=== PATIENT | male | born 1950 | race Two or more races ===

== ENCOUNTER 2024-11-08 08:06 | Emergency (ER) | payer MEDICAID, OTHER ==
[~2024-11-08] VITALS: Ht 177.8 cm; Wt 77.5 kg
[2024-11-08 08:35] VITALS: PULSE 68; RESP 18; O2SAT 97
--- NOTE | 2024-11-08 08:53 | ED.PDOC ---
HPI Comments 74 y/o M, BIBA, with recent SHx of CABG presents to the ED for CC of chest pain. EMS reports, patient is coming from home where family called d/t patient complaining of substernal chest pain with associated shortness of breath sudden onset, last night (11/08/24). Per EMS, family comments that patient's symptoms intensified at the later hours of the night with seizure like activity. Patient states, having a coronary artery bypass graft surgery x1week ago; following procedure is when symptoms began shortly after. Patient endorses, shortness of breath to worsen with changes in position and with light exertion. Patient was placed on 2L N.C for comfort and is stating at 95%. No other symptoms or modifying factors are present at this time. Chief Complaint: Chest Pain Time Seen by MD: 08:30 Reviewed Notes: Nurses Notes, Manager Regional Sales Notes, Medications, Allergies Allergies: Coded Allergies: NO KNOWN ALLERGIES (Unverified , 11/08/24) Information Source: Patient, Emergency Med Personnel Mode of Arrival: EMS Severity: Moderate Timing: Hours Duration: Since onset Prehospital treatment: None Location: Substernal Radiation: No Radiation Quality: Pressure Onset: At Rest PE Risk Factors: None Modifying Factors: Exertion Associated Signs and Symptoms: SOB Past Medical History PAST MEDICAL HISTORY: Unknown Surgical History: CABG Family History Family History: Unknown Social History Smoker: Non-Smoker Alcohol: Denies ETOH Use Drugs: Denies Drug Use Lives In: Home Constitutional: denies: chills, diaphoresis, fatigue, fever, malaise, sweats, weakness, others EENTM: denies: blurred vision, double vision, ear bleeding, ear discharge, ear drainage, ear pain, ear ringing, eye pain, eye redness, hearing loss, mouth pain, mouth swelling, nasal discharge, nose bleeding, nose congestion, nose pain, photophobia, tearing, throat pain, throat swelling, voice changes, others Respiratory: reports: cough, shortness of breath; denies: hemoptysis, orthopnea, SOB at rest, SOB with excertion, stridor, wheezing, others Cardiovascular: reports: chest pain; denies: dizzy spells, diaphoresis, Dyspnea on exertion, edema, irregular heart beat, left arm pain, lightheadedness, palpitations, PND, syncope, others Gastrointestinal: denies: abdomen distended, abdominal pain, blood streaked bowels, constipated, diarrhea, dysphagia, difficulty swallowing, hematemesis, melena, nausea, poor appetite, poor fluid intake, rectal bleeding, rectal pain, vomiting, others Genitourinary: denies: burning, dysuria, flank pain, frequency, hematuria, incontinence, penile discharge, penile sore, pain, testicle pain, testicle swelling, urgency, others Neurological: reports: dizziness; denies: fainting, headache, left sided numbness, left sided weakness, numbness, paresthesia, pre-existing deficit, right sided numbness, right sided weakness, seizure, speech problems, tingling, tremors, weakness, others Musculoskeletal: denies: back pain, gout, joint pain, joint swelling, muscle pain, muscle stiffness, neck pain, others Integumetry: denies: bruises, change in color, change in hair/nails, dryness, laceration, lesions, lumps, rash, wounds, others Allergic/Immunocompromised: denies: Difficulty Healing, Frequent Infections, Hives, Itching, others Hematologic/Lymphatic: denies: anemia, blood clots, easy bleeding, easy bruising, swollen glands, others Endocrine: denies: excessive hunger, excessive sweating, excessive thirst, excessive urination, flushing, intolerance to cold, intolerance to heat, unexplained weight gain, unexplained weight loss, others Psychiatric: denies: anxiety, bipolar disorder, depression, hopeless, panic disorder, schizophrenia, sleepless, suicidal, others All Other Systems: Reviewed and Negative Physical Exam General Appearance: No Apparent Distress, Normal HEENT: Normal ENT Inspection, Pharynx Normal Neck: Full Range of Motion, Non-Tender, Normal, Normal Inspection Respiratory: Chest Non-Tender, Lungs Clear, No Accessory Muscle Use, No Respiratory Distress, Normal Breath Sounds Cardiovascular: No Edema, No Murmur, No Gallop, Normal Peripheral Pulses, Regular Rate/Rhythm Breast Exam: Deferred Gastrointestinal: No Organomegaly, Non Tender, No Pulsatile Mass, Normal Bowel Sounds, Soft Genitalia: Deferred Pelvic: Deferred Rectal: Deferred Extremities: No calf tenderness, Normal capillary refill, Normal inspection, Normal range of motion, Non-tender, No pedal edema Musculoskeletal : Apperance: Normal Neurologic: Alert, card lacer II-XII nml as Tested, No Motor Deficits, Normal Affect, Normal Mood, No Sensory Deficits Cerebellar Function: Normal Reflexes: Normal Skin: Dry, Normal Color, Warm Lymphatic: No Adenopathy Was a procedure done? Was a procedure done?: No CP Differential Dx Differential Diagnosis: MAT, CT Differential Diagnosis: HTN Essential, HTN Accelerated Differential Diagnosis: Gastritis, Myocardial Infarction, Pericarditis, Pneumonia, Pulmonary Embolus, Other (URI, SINITIS, INFLUENZA) X-Ray, Labs, Meds, VS Vital Signs Date Time Temp Pulse Resp B/P (MAP) Pulse Ox O2 Delivery O2 Flow Rate FiO2 11/08/24 10:00 65 15 124/60 (81) 100 11/08/24 09:10 66 11/08/24 08:35 98.5 68 18 130/62 (84) 97 98.5 11/08/24 08:35 68 18 97 Nasal Cannula* 2 28 11/08/24 08:12 98.5 73 14 121/69 95 98.5 11/08/24 08:11 76 11/08/24 08:07 70 Lab Test 11/08/24 09:27 11/08/24 08:29 Range/Units Troponin I High Sensitivity 381 *H 370 *H </=54 ng/L White Blood Count 6.9 4.4-10.8 10^3/uL Red Blood Count 2.81 L 4.5-5.90 10^6/uL Hemoglobin 8.2 L 13.5-17.5 g/dL Hematocrit 24.0 L 41.0-53.0 % Mean Corpuscular Volume 85.3 80.0-100.0 fL Mean Corpuscular Hemoglobin 29.2 28.0-32.0 pg Mean Corpuscular Hemoglobin Concent 34.3 32.0-36.0 g/dL Red Cell Distribution Width 15.9 H 11.8-14.3 % Platelet Count 484 H 140-450 10^3/uL Mean Platelet Volume 8.1 6.9-10.8 fL Neutrophils (%) (Auto) 59.3 37.0-80.0 % Lymphocytes (%) (Auto) 14.5 10.0-50.0 % Monocytes (%) (Auto) 13.8 H 0.0-12.0 % Eosinophils (%) (Auto) 11.5 H 0.0-7.0 % Basophils (%) (Auto) 0.9 0.0-2.0 % Neutrophils # (Auto) 4.1 1.6-8.6 10 ^3/uL Lymphocytes # (Auto) 1.0 0.4-5.4 10 ^3/uL Monocytes # (Auto) 0.9 0-1.3 10 ^3/uL Eosinophils # (Auto) 0.8 0-0.8 10 ^3/uL Basophils # (Auto) 0.1 0-0.2 10 ^3/uL Nucleated Red Blood Cells 0.0 % Sodium Level 136 136-145 mmol/L Potassium Level 4.7 3.5-5.1 mmol/L Chloride Level 101 98-107 mmol/L Carbon Dioxide Level 27 20-31 mmol/L Anion Gap 8 5-15 Blood Urea Nitrogen 26 H 9-23 mg/dL Creatinine 1.66 H 0.700-1.30 mg/dL Glomerular Filtration Rate Calc 43 >90 mL/min BUN/Creatinine Ratio 15.7 10.0-20.0 Serum Glucose 78 74-106 mg/dL Calcium Level 8.6 L 8.7-10.4 mg/dL B-Type Natriuretic Peptide 335.71 0-100 pg/mL [place] [address] Ph: [phone] DIAGNOSTIC IMAGING Diagnostic Imaging Report : [id number] Signed PATIENT: SHANELLE CHINCHILLA ACCT: [id number] UNIT: [id number] : 1950 LOC: ER ROOM / BED: / AGE / SEX: 74 / M ADM STATUS: REG ER SERVICE 8 ORDERING PHYSICIAN: VIDAL FREEDMAN MD PROCEDURE(s): CXRP - CHEST PORTABLE REASON: cp ORDER NUMBER(s): [id number], ACCESSION NUMBER(s): [id number] INDICATION: cp TECHNIQUE: Frontal view of the chest. COMPARISON: None FINDINGS: Median sternotomy. Cardiomegaly. There is no evidence of pleural disease. The lungs are clear. The bony structures of the chest are intact without fracture. IMPRESSION: 1. No evidence of acute disease. ATED BY: JACK MCMULLEN MD DICTATED DATE/TIME: 11/08/24857 SIGNED BY: JACK MCMULLEN MD SIGNED DATE/TIME: 11/08/24857 CC: Time of 1ST Reevaluation: 09:00 Reevaluation 1ST: Unchanged Patient Education/Counseling: Diagnosis, Treatment Family Education/Counseling: No Family Present SEPSIS Sepsis Screen Date sepsis recognized/suspect: Nov 08, 2024 Time Sepsis recognized/suspect: 812 Recent Procedure: No On Antibiotic Therapy: No Respiratory Rate >20: No Heart Rate >90: No Temp<36 C (96.8 F) or >38.3 C: No SBP <90 or MAP <65 mmHG: No New Acute Mental Status Change: No Is the patient on CPAP, BIPAP,: No Physician Orders Chest Portable (11/08/24 08:29) Electrocardigram (11/08/24 08:13) Troponin-I Hs (11/08/24 11:13) Electrocardigram (11/08/24 09:13) Electrocardigram (11/08/24 11:13) Vital Signs Date Time Temp Pulse Resp B/P (MAP) Pulse Ox O2 Delivery O2 Flow Rate FiO2 11/08/24 10:00 65 15 124/60 (81) 100 11/08/24 09:10 66 11/08/24 08:35 98.5 68 18 130/62 (84) 97 98.5 11/08/24 08:35 68 18 97 Nasal Cannula* 2 28 11/08/24 08:12 98.5 73 14 121/69 95 98.5 11/08/24 08:11 76 11/08/24 08:07 70 Laboratory Tests Test 11/08/24 08:29 White Blood Count 6.9 10^3/uL (4.4-10.8) Departure 1 Departure Time of Disposition: 10:44 (Patient presented with chest pain that was concerning for possible STEMI, ACS, PE, Pneumonia, Muscle Strain, COPD, Dissection. Data: 1. I ordered and reviewed the result of at least 3 labs including a CBC, BMP, and Troponin. 2. I independently interpreted the following tests: EKG which shows sinus arrythmia and Chest X-ray which shows benign moises st.Risk:This patient has a high risk of morbidity due to further diagnostic testing or treatment and may suffer from an acute cardiac or respiratory disorder. Workup reveals concern for acs and patient should be admitted for further workup and possible expert consultation. ) Impression: Primary Impression: Acute chest pain Additional Impressions: Shortness of breath S/P CABG (coronary artery bypass graft) Disposition: 09 ADMITTED INPATIENT Admit to: Tele Condition: Guarded Critical Care Note Critical Care Time?: Yes Critical care comment: Acute chest pain Authorized and Performed by: Vidal Freedman MD Total critical care time: Approximately 39 minutes Due to a high probability of clinically significant, life threatening deterioration, the patient required my highest level of preparedness to intervene emergently and I personally spent this critical care time directly and personally managing the patient. This critical care time included obtaining a history; examining the patient; pulse oximetry; ordering and review of studies; arranging urgent treatment with development of a management plan; evaluation of patient's response to treatment; frequent reassessment; and, discussions with o ther providers. This critical care time was performed to assess and manage the high probability of imminent, life-threatening deterioration that could result in multi-organ failure. It was exclusive of separately billable procedures and treating other patients and teaching time. Please see my other sections and the rest of the note for further information on patient assessment and treatment. Stability Stability form required: No Heart Score Heart Score: Heart Score Response (Comments) Value History Slightly Suspicious 0 EKG Repolarization Disturb 1 Age >65 2 Risk Factors 1 or 2 risk factors 1 Troponin >3 x's Normal limit 2 Total 6 I personally scribed for VIDAL FREEDMAN MD ([email or web address]) on 11/08/24 at 08:53. Electronically submitted by Freida Pickett ([email or web address]). I personally scribed for VIDAL FREEDMAN MD ([email or web address]) on 11/08/24 at 09:29. Electronically submitted by Freida Pickett ([email or web address]). VIDAL FREEDMAN MD Nov 08, 2024 08:53
[2024-11-08 09:00] LABS: Nucleated Red Blood Cells % 0.0 %
--- NOTE | 2024-11-08 09:01 | DVH ---
INDICATION: cp TECHNIQUE: Frontal view of the chest. COMPARISON: None FINDINGS: Median sternotomy. Cardiomegaly. There is no evidence of pleural disease. The lungs are clear. Th e bony structures of the chest are intact without fracture. IMPRESSION: 1. No evidence of acute disease.
[2024-11-08 09:02] LABS: Hematocrit 24.0 % (41.0-53.0); Hemoglobin 8.2 g/dL (13.5-17.5); Mean Corpuscular Hemoglobin 29.2 pg (28.0-32.0); Mean Corpuscular Volume 85.3 fL (80.0-100.0)
[2024-11-08 09:12] LABS: Chloride 101 mmol/L (98-107); Potassium 4.7 mmol/L (3.5-5.1)
[2024-11-08 09:13] LABS: Carbon Dioxide 27 mmol/L (20-31)
[2024-11-08 09:18] LABS: BUN/Creatinine Ratio 15.7 (10.0-20.0); Glucose 78 mg/dL (74-106)
[2024-11-08 09:19] LABS: Anion Gap 8 (5-15); Blood Urea Nitrogen 26 mg/dL (9-23); Calcium 8.6 mg/dL (8.7-10.4); Sodium 136 mmol/L (136-145)
[2024-11-08] MEDS ORDERED: ONDANSETRON HCL 4 MG/2 ML VIAL IV PRN (12:15)
[2024-11-08] MEDS ORDERED: ACETAMINOPHEN 325 MG TAB PO PRN (12:15)
[2024-11-08] MEDS ORDERED: NITROGLYCERIN 0.4 MG SL TAB SL PRN ×2 (12:15)
[2024-11-08] MEDS ORDERED: MORPHINE SULFATE 4 MG/ML SYR/VIAL IV PRN (12:15)
--- NOTE | 2024-11-08 12:18 | DVHHP2 ---
Review of Systems Allergies: Coded Allergies: NO KNOWN ALLERGIES (Unverified , 11/08/24) Exam Vital Signs Vital Signs Date Time Temp Pulse Resp B/P (MAP) Pulse Ox O2 Delivery O2 Flow Rate FiO2 11/08/24 10:00 65 15 124/60 (81) 100 11/08/24 08:35 98.5 98.5 11/08/24 08:35 Nasal Cannula* 2 28 Labs/Xrays Labs Test 11/08/24 11:35 11/08/24 08:29 Range/Units Troponin I High Sensitivity 397 *H </=54 ng/L White Blood Count 6.9 4.4-10.8 10^3/uL Red Blood Count 2.81 L 4.5-5.90 10^6/uL Hemoglobin 8.2 L 13.5-17.5 g/dL Hematocrit 24.0 L 41.0-53.0 % Mean Corpuscular Volume 85.3 80.0-100.0 fL Mean Corpuscular Hemoglobin 29.2 28.0-32.0 pg Mean Corpuscular Hemoglobin Concent 34.3 32.0-36.0 g/dL Red Cell Distribution Width 15.9 H 11.8-14.3 % Platelet Count 484 H 140-450 10^3/uL Mean Platelet Volume 8.1 6.9-10.8 fL Neutrophils (%) (Auto) 59.3 37.0-80.0 % Lymphocytes (%) (Auto) 14.5 10.0-50.0 % Monocytes (%) (Auto) 13.8 H 0.0-12.0 % Eosinophils (%) (Auto) 11.5 H 0.0-7.0 % Basophils (%) (Auto) 0.9 0.0-2.0 % Neutrophils # (Auto) 4.1 1.6-8.6 10 ^3/uL Lymphocytes # (Auto) 1.0 0.4-5.4 10 ^3/uL Monocytes # (Auto) 0.9 0-1.3 10 ^3/uL Eosinophils # (Auto) 0.8 0-0.8 10 ^3/uL Basophils # (Auto) 0.1 0-0.2 10 ^3/uL Nucleated Red Blood Cells 0.0 % Sodium Level 136 136-145 mmol/L Potassium Level 4.7 3.5-5.1 mmol/L Chloride Level 101 98-107 mmol/L Carbon Dioxide Level 27 20-31 mmol/L Anion Gap 8 5-15 Blood Urea Nitrogen 26 H 9-23 mg/dL Creatinine 1.66 H 0.700-1.30 mg/dL Glomerular Filtration Rate Calc 43 >90 mL/min BUN/Creatinine Ratio 15.7 10.0-20.0 Serum Glucose 78 74-106 mg/dL Calcium Level 8.6 L 8.7-10.4 mg/dL B-Type Natriuretic Peptide 335.71 0-100 pg/mL SEPSIS Sepsis Screen Date sepsis recognized/suspect: Nov 08, 2024 Time Sepsis recognized/suspect: 834 Recent Procedure: Yes On Antibiotic Therapy: No Respiratory Rate >20: No Heart Rate >90: No Temp<36 C (96.8 F) or >38.3 C: No SBP <90 or MAP <65 mmHG: No New Acute Mental Status Change: No Is the patient on CPAP, BIPAP,: No Physician Orders Chest Portable (11/08/24 08:29) Electrocardigram (11/08/24 08:13) Electrocardigram (11/08/24 09:13) Electrocardigram (11/08/24 11:13) Admit (11/08/24 12:04) Code Status (11/08/24 12:04) Vital Signs .PER UNIT PROTOCOL (11/08/24 12:04) Box Tender (11/08/24 12:04) May Elevate Hob ____ Degrees (11/08/24 12:04) Cardiac Diet-2gna,Lofat,Lochol (11/08/24 Lunch) Aspirin Tablet (11/09/24 10:00) Lipitor 40mg Hs Hi-Intensity (11/08/24 22:00) Morphine Sulfate Injection (11/08/24 12:15) Acetaminophen Tablet (Tylenol Tablet) (11/08/24 12:15) Docusate Sodium Capsule (Colace Capsule) (11/09/24 10:00) Complete Blood Count (11/09/24 04:00) Comprehensive Metabolic Panel (11/09/24 04:00) Echo 2d Mode Cardiac Dop (11/08/24 12:04) Nitroglycerin Sublingual (Ntrostat Subli (11/08/24 12:15) Ondansetron Hcl (Zofran) (11/08/24 12:15) Magnesium (11/08/24 12:04) Troponin-I Hs (11/08/24 12:04) Cardiac Rehabilitation - Outpa (11/08/24 ) Nitroglycerin Sublingual (Ntrostat Subli (11/08/24 12:15) Stat Ekg For Chest Pain (11/08/24 12:04) Notify Md Of Changes From Base (11/08/24 12:04) Mastercam Programmer For 24 Hours (11/08/24 12:04) Emergency Dysrhythmia Protocol (11/08/24 12:04) Rhythm Strips Once Every Shift (11/08/24 12:04) Oxygen By Nasal Cannula (11/08/24 12:04) Troponin-I Hs (11/08/24 13:04) Troponin-I Hs (11/08/24 15:04) * Cardiology Consult (11/08/24 12:04) Vital Signs Date Time Temp Pulse Resp B/P (MAP) Pulse Ox O2 Delivery O2 Flow Rate FiO2 11/08/24 10:00 65 15 124/60 (81) 100 11/08/24 09:10 66 11/08/24 08:35 98.5 68 18 130/62 (84) 97 98.5 11/08/24 08:35 68 18 97 Nasal Cannula* 2 28 11/08/24 08:12 98.5 73 14 121/69 95 98.5 11/08/24 08:11 76 11/08/24 08:07 70 Laboratory Tests Test 11/08/24 08:29 White Blood Count 6.9 10^3/uL (4.4-10.8) Assessment/Plan Assessment/Plan acute chest pain acute on chronic anemia acute on chronic ckd My Orders Orders - THOMAS BRUNSON DNP Procedure Category Date Status Time Admit ADMIT 11/08/24 Transmitted 12:04 Code Status CODE 11/08/24 Transmitted 12:04 Vital Signs JAGDEEP 11/08/24 Transmitted 12:04 Box Tender JAGDEEP 11/08/24 Transmitted 12:04 May Elevate Hob ____ JAGDEEP 11/08/24 Transmitted Degrees 12:04 Cardiac DIET 11/08/24 Transmitted Diet-2gna,Lofat,Lochol Lunch Aspirin Tablet PHA 11/09/24 Transmitted 10:00 Lipitor 40mg Hs PHA 11/08/24 Transmitted Hi-Intensity 22:00 Morphine Sulfate PHA 11/08/24 Transmitted Injection 12:15 Acetaminophen Tablet PHA 11/08/24 Transmitted (Tylenol Tablet) 12:15 Docusate Sodium PHA 11/09/24 Transmitted Capsule (Colace 10:00 Complete Blood Count LAB 11/09/24 Verified 04:00 Comprehensive LAB 11/09/24 Verified Metabolic Panel 04:00 Echo 2d Mode Cardiac US 11/08/24 Transmitted DOP 12:04 Nitroglycerin PHA 11/08/24 Transmitted Sublingual (Ntrostat 12:15 Ondansetron Hcl PHA 11/08/24 Transmitted (Zofran) 12:15 Magnesium LAB 11/08/24 Transmitted 12:04 Troponin-I Hs LAB 11/08/24 Transmitted 12:04 Cardiac JAGDEEP 11/08/24 Transmitted Rehabilitation - Outpa Nitroglycerin PHA 11/08/24 Transmitted Sublingual (Ntrostat 12:15 Stat Ekg For Chest JAGDEEP 11/08/24 Transmitted Pain 12:04 Notify Of Changes JAGDEEP 11/08/24 Transmitted From Base 12:04 Mastercam Programmer For JAGDEEP 11/08/24 Transmitted 24 Hours 12:04 Emergency Dysrhythmia JAGDEEP 11/08/24 Transmitted Protocol 12:04 Rhythm Strips Once JAGDEEP 11/08/24 Transmitted Every Shift 12:04 Oxygen By Nasal RT 11/08/24 Transmitted Cannula 12:04 Troponin-I Hs LAB 11/08/24 Transmitted 13:04 Troponin-I Hs LAB 11/08/24 Transmitted 15:04 * Cardiology Consult CONS 11/08/24 Transmitted 12:04 [facility] Nov 08, 2024 12:17
[2024-11-08] MEDS ORDERED: METO25TA36 PO (12:53)
[2024-11-08] MEDS ORDERED: ATOR-47 PO (12:53)
[2024-11-08] MEDS ORDERED: DAPA1TAB4 PO (12:53)
[2024-11-08] MEDS ORDERED: FINA5TAB4 PO (12:53)
[2024-11-08] MEDS ORDERED: FOLITAB22 PO (12:53)
[2024-11-08] MEDS ORDERED: TAMS0.4C39 PO (12:53)
[2024-11-08] MEDS ORDERED: ASPI-498 OR (12:53)
--- NOTE | 2024-11-08 12:59 | ECG ---
[facility] Test Date: 2024-11-08 Test Time: 08:09:27 Pat Name: SHANELLE CHINCHILLA Department: Room: [address] [place] [address] Gender: M Slot Machine Floor Person: NGUYỄN : 1950 Requested By: VIDAL CHANG Order Number: [id number] Reading MD: [place] Child Measurements Intervals [place] Rate: 76 P: 16 DC: 180 QRS: 15 QRSD: 93 T: 18 QT: 426 QTc: 480 Interpretive Statements Sinus rhythm Borderline low voltage, extremity leads Borderline prolonged QT interval Electronically Signed On 11-13-2024 19:15:24 PDT by [place]o Child Please click the below link to view image of tracing.
--- NOTE | 2024-11-08 13:34 | ECG ---
[facility] Test Date: 2024-11-08 Test Time: 09:08:54 Pat Name: SHANELLE CHINCHILLA Department: Room: [address] [place] [address] Gender: M Hub Bander: NGUYỄN : 1950 Requested By: VIDAL CHANG Order Number: [id number] Reading MD: [place] Child Measurements Intervals [place] Rate: 66 P: 51 [place]: 204 QRS: 10 QRSD: 91 T: 0 QT: 380 QTc: 399 Interpretive Statements Sinus rhythm Borderline T wave abnormalities Electronically Signed On 11-13-2024 19:15:31 PDT by Reno Child Please click the below link to view image of tracing.
[2024-11-08 14:20] LABS: Iron 20.0 ug/dL (65-175); Total Iron Binding Capacity 185.0 ug/dL (250-425)
[2024-11-08 15:30] VITALS: BP 138/67; PULSE 70; RESP 17; TEMP 98.3; O2SAT 100
[2024-11-08] MEDS ORDERED: ATORVASTATIN 20 MG TAB PO SCH (22:00)
[2024-11-09] MEDS ORDERED: DOCUSATE SOD 100 MG CAP PO SCH (10:00)
== END 2024-11-08 13:01 | disposition short-term general hospital (02) ==
LOC: ER 08:06 → EDBD 08:06 → UNDOADMIN 12:04 → OVERFLOW 12:04 → ER 13:01
DX: R07.89 Other chest pain (principal); Z95.1 Presence of aortocoronary bypass graft
CPT/HCPCS: 36415; 71045; 80048; 83540; 83550; 83735; 83880; 84484; 85025; 93005